=== PATIENT | female | born 1985 ===

== ENCOUNTER 2016-11-06 17:37 | Emergency (ER) | payer SELFPAY ==
--- NOTE | 2016-11-12 23:42 | ER ---
ADMIT: 11/06/2016 RM/LOC: ER [facility] MR#: [id number] [address] [facility] [address] [place], [place] [id number] [address] [place] [address] Emergency Room Report SEX: F AGE: 31 : 1985 DATE: 11/06/2016 TIME: 1737 hours. Please refer to my T-sheet for complete H and P. HISTORY OF PRESENT ILLNESS: Briefly, the patient is a 31-year-old who comes in with burning with urination that started yesterday. Does not think she could be . She says it is 8/10. She has never had a urine infection before. She has been very healthy. PHYSICAL EXAMINATION: VITAL SIGNS: Stable. ABDOMEN: Soft, tender in the suprapubic. No pain at McBurney's point. EMERGENCY DEPARTMENT COURSE: A urine came back negative for , positive for urine infection with 2+ leukocyte esterase, 43 white cells, 31 red cells, positive nitrite. I gave her Bactrim, Pyridium, and she is ready for discharge. ASSESSMENT: Urinary tract infection. PLAN: Bactrim and Pyridium. Follow up. Return if worse. Brandon Mcelroy MD/ unique JOB #: [id number] CC: Brandon Mcelroy MD, Attending Physician Asif Gallardo MD, Family Physician
== END 2016-11-06 18:55 | disposition home or self-care (01) ==
LOC: ER 17:37
DX: N39.0 Urinary tract infection, site not specified (principal)